=== PATIENT | female | born 1935 | race African-American/Black ===

== ENCOUNTER 2021-07-21 21:36 | Inpatient (IN) | payer MEDICARE, MEDICAID ==
[~2021-07-21] VITALS: Ht 152.4 cm; Wt 93.9 kg
[~2021-07-21 21:36] MED LIST: ALLO100T PO; AMLO10TA80 PO; ATOR20TA65 PO; CLON0.3T PO; DIGO125T PO; FAMO20TA8 PO; FURO80TA3 PO; IBUP-2030 PO; POTA10TA15 PO; PRED10DR OP; RIVA10TA PO
[2021-07-21] MEDS ORDERED: SODIUM CHLORIDE 0.9% 500 ML IV ONE (22:30)
[2021-07-21 22:31] LABS: HEMATOCRIT. 41.2 % (36.0-48.0); MEAN CORPUSCULAR VOLUME 79.3 fL (81.0-99.0); MEAN PLATELET VOLUME 9.9 fl (7.4-10.4); PLATELET 305 x1000/uL (130-400); RED BLOOD CELL COUNT 5.19 mill/uL (4.2-5.4); RED CELL DISTRIBUTION WIDTH 17.2 % (11.6-14.6)
[2021-07-21 22:44] LABS: CHLORIDE 94 mEq/L (98-107)
[2021-07-21 22:52] LABS: CREATINE KINASE 219 IU/L (26-192)
[2021-07-21] MEDS ORDERED: PIPERACILLIN/TAZ 3.375G PREMIX 50 ML IV NR (22:57)
[2021-07-21] MEDS ORDERED: PIPERACILLIN/TAZOBACTAM 3.375GM/50ML PREMIX IV ONE (23:00)
[2021-07-21 23:01] LABS: PLATELET ESTIMATE NORMAL
[2021-07-21 23:07] LABS: INR 1.4
[2021-07-22 01:00] LABS: T4 FREE 1.1 ng/dL (0.76-1.46)
[2021-07-22 02:29] LABS: DIGOXIN 5.4 ng/mL (0.9-2.0)
[2021-07-22] MEDS ORDERED: ONDANSETRON HCL 4MG/2ML INJ IV PRN (05:15)
[2021-07-22] MEDS ORDERED: DEXT 5%/0.45% NACL 1000ML 1,000 ML IV SCH (05:15)
[2021-07-22] MEDS ORDERED: ENOXAPARIN 40MG/0.4ML SYR SUBCUT SCH (05:15)
[2021-07-22] MEDS ORDERED: ACETAMINOPHEN 325MG TABLET PO PRN (05:15)
[2021-07-22 05:30] LABS: CLARITY URINE CLOUDY (CLEAR); COLOR URINE DARK YELLOW (YELLOW); KETONES URINE TRACE (NEGATIVE); LEUKOCYTE ESTERASE URINE 2+ (NEGATIVE); NITRITE URINE NEGATIVE (NEGATIVE); OCCULT BLOOD URINE 2+ (NEGATIVE); PROTEIN URINE 1+ (NEGATIVE); SPECIFIC GRAVITY URINE 1.014 (1.005-1.030); UROBILINOGEN URINE 0.2 E.U./dL (0.2-1.0)
[2021-07-22 08:00] VITALS: BP 137/54
[2021-07-22] MEDS: ENOXAPARIN 30MG/0.3ML SYR SUBCUT SCH (09:20)
[2021-07-22] MEDS ORDERED: CEFTRIAXONE 1 G PREMIX 50 ML IV SCH (10:45)
[2021-07-22] MEDS: CEFTRIAXONE 1,000 MG in DEXTROSE 5% WATER 50 ML IV SCH (11:52)
[2021-07-22 12:00] VITALS: BP 143/57
[2021-07-22 12:15] LABS: DIGOXIN 5.6 ng/mL (0.9-2.0)
[2021-07-22 12:50] VITALS: BP 143/57
[2021-07-22] MEDS: SODIUM CHLORIDE 0.45% 1,000 ML IV SCH ×2 (14:15→23:10)
[2021-07-22 15:59] LABS: CREATINE KINASE 207 IU/L (26-192)
[2021-07-22 16:00] VITALS: BP 137/50
[2021-07-22 20:00] VITALS: BP 131/56
[2021-07-23] VITALS: BP 126/63
[2021-07-23 04:00] VITALS: BP 138/50
[2021-07-23 08:00] VITALS: BP 141/45
[2021-07-23 08:23] LABS: HEMATOCRIT. 38.9 % (36.0-48.0); HEMOGLOBIN. 12.4 g/dL (12.0-16.0); MEAN CORPUSCULAR HEMOGLOBIN 25.2 pg (28.0-32.0); MEAN CORPUSCULAR VOLUME 79.4 fL (81.0-99.0); MEAN PLATELET VOLUME 9.6 fl (7.4-10.4); PLATELET 229 x1000/uL (130-400); RED CELL DISTRIBUTION WIDTH 17.4 % (11.6-14.6)
[2021-07-23] MEDS: ENOXAPARIN 30MG/0.3ML SYR SUBCUT SCH (08:36)
[2021-07-23] MEDS: CEFTRIAXONE 1,000 MG in DEXTROSE 5% WATER 50 ML IV SCH (11:49)
[2021-07-23 12:00] VITALS: BP 126/51
[2021-07-23] MEDS ORDERED: VANCOMYCIN 1250MG in DEXTROSE 5% WATER 250ML IV SCH (13:00)
[2021-07-23] MEDS ORDERED: NALOXONE HCL 0.4MG/ML VIAL IV PRN (14:30)
[2021-07-23] MEDS: HYDROMORPHONE HCL/PF 2MG/ML CPJ IV PRN ×2 (14:36→23:38)
[2021-07-23] MEDS: SODIUM CHLORIDE 0.45% 1,000 ML IV SCH (14:41)
[2021-07-23 16:00] VITALS: BP 127/51
[2021-07-23 20:00] VITALS: BP 125/57
[2021-07-23 22:20] LABS: PLATELET ESTIMATE NORMAL
[2021-07-24] VITALS: BP 119/59
[2021-07-24 04:00] VITALS: BP 130/54
[2021-07-24 07:35] LABS: HEMOGLOBIN. 11.8 g/dL (12.0-16.0); MEAN CORPUSCULAR HEMOGLOBIN 25.9 pg (28.0-32.0); MEAN CORPUSCULAR VOLUME 79.2 fL (81.0-99.0); PLATELET 212 x1000/uL (130-400); RED BLOOD CELL COUNT 4.54 mill/uL (4.2-5.4); RED CELL DISTRIBUTION WIDTH 17.9 % (11.6-14.6)
[2021-07-24 08:00] VITALS: BP 148/53
[2021-07-24 08:04] LABS: CHLORIDE 98 mEq/L (98-107)
[2021-07-24] MEDS: ENOXAPARIN 30MG/0.3ML SYR SUBCUT SCH (09:10)
[2021-07-24] MEDS: SODIUM CHLORIDE 0.9% 1,000 ML IV SCH (09:10)
[2021-07-24] MEDS: CEFTRIAXONE 1,000 MG in DEXTROSE 5% WATER 50 ML IV SCH (11:25)
[2021-07-24 12:00] VITALS: BP 142/58
[2021-07-24] MEDS ORDERED: VANCOMYCIN 750 MG PREMIX 150 ML IV NR (12:30)
[2021-07-24 13:11] LABS: PLATELET ESTIMATE NORMAL
[2021-07-24] MEDS: SODIUM CHLORIDE 0.45% 1,000 ML IV SCH (15:24)
[2021-07-24 16:00] VITALS: BP 129/44
[2021-07-24 20:00] VITALS: BP 160/72
[2021-07-25] VITALS: BP 144/55
[2021-07-25] MEDS: HYDROMORPHONE HCL/PF 2MG/ML CPJ IV PRN ×2 (00:49→20:50)
[2021-07-25 04:00] VITALS: BP 146/54
[2021-07-25] MEDS: SODIUM CHLORIDE 0.9% 1,000 ML IV SCH ×2 (04:19→22:14)
[2021-07-25 08:00] VITALS: BP 150/63
[2021-07-25] MEDS: ENOXAPARIN 30MG/0.3ML SYR SUBCUT SCH (09:00)
[2021-07-25] MEDS: CEFTRIAXONE 1,000 MG in DEXTROSE 5% WATER 50 ML IV SCH (10:04)
[2021-07-25 12:00] VITALS: BP 121/90
[2021-07-25 13:09] LABS: ANTI-NUCLEAR ANTIBODIES DIRECT Negative (Negative)
[2021-07-25 16:00] VITALS: BP 119/86
[2021-07-25] MEDS ORDERED: DIGOXIN IMMUNE FAB IV NR (18:45)
[2021-07-25] MEDS ORDERED: SODIUM CHLORIDE 0.9% IV NR (18:45)
[2021-07-25 20:00] VITALS: BP 139/70
[2021-07-26] VITALS: BP 113/65
[2021-07-26 04:00] VITALS: BP 130/52
[2021-07-26 06:35] LABS: HEMATOCRIT. 37.6 % (36.0-48.0); HEMOGLOBIN. 11.9 g/dL (12.0-16.0); MEAN CORPUSCULAR HEMOGLOBIN 25.4 pg (28.0-32.0); MEAN CORPUSCULAR VOLUME 80.1 fL (81.0-99.0); MEAN PLATELET VOLUME 9.7 fl (7.4-10.4); PLATELET 198 x1000/uL (130-400); RED BLOOD CELL COUNT 4.69 mill/uL (4.2-5.4); RED CELL DISTRIBUTION WIDTH 17.7 % (11.6-14.6)
[2021-07-26 08:00] VITALS: BP 131/60
[2021-07-26] MEDS: SODIUM CHLORIDE 0.9% 1,000 ML IV SCH ×2 (09:24→21:45)
[2021-07-26] MEDS ORDERED: POTASSIUM CHLORIDE 20MEQ TABLET SR PO SCH (09:30)
[2021-07-26] MEDS: CEFTRIAXONE 1,000 MG in DEXTROSE 5% WATER 50 ML IV SCH (10:30)
[2021-07-26] MEDS: ENOXAPARIN 30MG/0.3ML SYR SUBCUT SCH (10:30)
[2021-07-26 12:00] VITALS: BP 104/50
[2021-07-26 16:00] VITALS: BP 138/72
[2021-07-26 19:15] LABS: PLATELET ESTIMATE NORMAL
[2021-07-26 20:00] VITALS: BP 156/60
[2021-07-26] MEDS ORDERED: VANCOMYCIN 500 MG PREMIX 100 ML IV NR (22:00)
[2021-07-27] VITALS (7 sets, daily range): BP systolic 126–164; BP diastolic 22–66
[2021-07-27] MEDS: HYDROMORPHONE HCL/PF 2MG/ML CPJ IV PRN ×2 (00:59→21:27)
[2021-07-27] MEDS: ENOXAPARIN 30MG/0.3ML SYR SUBCUT SCH (08:47)
[2021-07-27 08:52] LABS: HEMATOCRIT. 36.1 % (36.0-48.0); HEMOGLOBIN. 11.5 g/dL (12.0-16.0); MEAN CORPUSCULAR HEMOGLOBIN 25.2 pg (28.0-32.0); MEAN CORPUSCULAR VOLUME 79.2 fL (81.0-99.0); PLATELET 184 x1000/uL (130-400); RED BLOOD CELL COUNT 4.56 mill/uL (4.2-5.4); RED CELL DISTRIBUTION WIDTH 17.9 % (11.6-14.6)
[2021-07-27 09:19] LABS: DIGOXIN 2.9 ng/mL (0.9-2.0)
[2021-07-27] MEDS: SODIUM CHLORIDE 0.9% 1,000 ML IV SCH ×2 (10:04→23:29)
[2021-07-27] MEDS: CEFTRIAXONE 1,000 MG in DEXTROSE 5% WATER 50 ML IV SCH (11:26)
[2021-07-27] MEDS ORDERED: LEVOTHYROXINE SODIUM 50MCG TABLET PO NR (13:15)
[2021-07-27 15:02] LABS: PLATELET ESTIMATE NORMAL
[2021-07-28 04:55] VITALS: BP 154/68
[2021-07-28] MEDS: LEVOTHYROXINE SODIUM 50MCG TABLET PO SCH (06:00)
[2021-07-28 06:40] LABS: HEMATOCRIT. 34.2 % (36.0-48.0); MEAN CORPUSCULAR HEMOGLOBIN 25.7 pg (28.0-32.0); MEAN CORPUSCULAR VOLUME 79.9 fL (81.0-99.0); MEAN PLATELET VOLUME 10.4 fl (7.4-10.4); PLATELET 176 x1000/uL (130-400); RED BLOOD CELL COUNT 4.28 mill/uL (4.2-5.4); RED CELL DISTRIBUTION WIDTH 18.1 % (11.6-14.6)
[2021-07-28 08:00] VITALS: BP 164/67
[2021-07-28] MEDS: ENOXAPARIN 30MG/0.3ML SYR SUBCUT SCH (09:39)
[2021-07-28] MEDS: SODIUM CHLORIDE 0.9% 1,000 ML IV SCH ×2 (09:39→23:14)
[2021-07-28] MEDS ORDERED: POTASSIUM CHLORIDE 20MEQ TABLET SR PO NR (10:15)
[2021-07-28] MEDS ORDERED: ATROPINE SULFATE 1MG/ML VIAL IV PRN (10:15)
[2021-07-28 12:00] VITALS: BP 169/85
[2021-07-28 16:00] VITALS: BP 166/72
[2021-07-28 16:29] VITALS: BP 116/56
[2021-07-28 18:00] LABS: PLATELET ESTIMATE NORMAL
[2021-07-28 20:00] VITALS: BP 168/72
[2021-07-28] MEDS ORDERED: HYDRALAZINE 20MG/ML VIAL IV NR (21:15)
[2021-07-28] MEDS: ZOLPIDEM TARTRATE 5MG TABLET PO PRN (21:33)
[2021-07-29] VITALS (11 sets, daily range): BP systolic 137–168; BP diastolic 58–88
[2021-07-29] MEDS: LEVOTHYROXINE SODIUM 50MCG TABLET PO SCH (06:40)
[2021-07-29] MEDS ORDERED: IODIXANOL 320MG/ML 100 ML BOTTLE IV ONE (07:36)
[2021-07-29] MEDS ORDERED: CEFAZOLIN 1000MG PREMIX 100 ML IV ONE (07:36)
[2021-07-29] MEDS ORDERED: LIDOCAINE HCL 1% 10 MG/ML 10ML VIAL ONE ×2 (08:26→09:01)
[2021-07-29] MEDS ORDERED: GENTAMICIN SULF 40MG/ML 2ML VIAL ONE (08:26)
[2021-07-29] MEDS ORDERED: GENTAMICIN/NS IRRIGATION 500 ML IR ONE (08:28)
[2021-07-29] MEDS ORDERED: MIDAZOLAM HCL 2 MG/2 ML VIAL ONE (08:43)
[2021-07-29] MEDS ORDERED: FENTANYL CITRATE/PF 50MCG/ML 2ML VIAL ONE (09:00)
[2021-07-29] MEDS ORDERED: HYDROCODONE/ACETAMINOPHEN 5/325MG TABLET PO PRN (09:45)
[2021-07-29] MEDS ORDERED: NALOXONE HCL 0.4MG/ML VIAL IV PRN (09:45)
[2021-07-29] MEDS: SODIUM CHLORIDE 0.9% 1,000 ML IV SCH (12:43)
[2021-07-29 15:45] LABS: HEMATOCRIT. 34.7 % (36.0-48.0); MEAN CORPUSCULAR HEMOGLOBIN 25.6 pg (28.0-32.0); MEAN CORPUSCULAR VOLUME 80.3 fL (81.0-99.0); MEAN PLATELET VOLUME 9.9 fl (7.4-10.4); PLATELET 147 x1000/uL (130-400); RED BLOOD CELL COUNT 4.32 mill/uL (4.2-5.4); RED CELL DISTRIBUTION WIDTH 18.6 % (11.6-14.6)
[2021-07-29 15:55] LABS: CHLORIDE 118 mEq/L (98-107)
[2021-07-29 16:04] LABS: PHOSPHORUS 2.3 mg/dL (2.5-4.9)
[2021-07-29 16:19] LABS: DIGOXIN 1.5 ng/mL (0.9-2.0)
[2021-07-29] MEDS: SODIUM CHLORIDE 0.45% 1,000 ML IV SCH (20:18)
[2021-07-29] MEDS ORDERED: KCL 10MEQ/50ML PREMIX 50 ML IV SCH (21:00)
[2021-07-29 22:32] LABS: PLATELET ESTIMATE NORMAL
[2021-07-30] VITALS (11 sets, daily range): BP systolic 122–163; BP diastolic 62–76
[2021-07-30] MEDS: LEVOTHYROXINE SODIUM 50MCG TABLET PO SCH (06:57)
[2021-07-30 07:00] LABS: HEMATOCRIT. 33.2 % (36.0-48.0); HEMOGLOBIN. 10.6 g/dL (12.0-16.0); MEAN CORPUSCULAR HEMOGLOBIN 25.5 pg (28.0-32.0); MEAN CORPUSCULAR VOLUME 79.7 fL (81.0-99.0); MEAN PLATELET VOLUME 10.3 fl (7.4-10.4); PLATELET 150 x1000/uL (130-400); RED BLOOD CELL COUNT 4.17 mill/uL (4.2-5.4)
[2021-07-30] MEDS: SODIUM CHLORIDE 0.45% 1,000 ML IV SCH (08:49)
[2021-07-30] MEDS: DEXTROSE 5% WATER 1,000 ML IV SCH (10:29)
[2021-07-30 11:21] LABS: PLATELET ESTIMATE NORMAL
[2021-07-30] MEDS: ZOLPIDEM TARTRATE 5MG TABLET PO PRN (20:41)
[2021-07-31] VITALS (12 sets, daily range): BP systolic 128–152; BP diastolic 52–76
[2021-07-31] MEDS: DEXTROSE 5% WATER 1,000 ML IV SCH ×2 (02:28→19:55)
[2021-07-31] MEDS: LEVOTHYROXINE SODIUM 50MCG TABLET PO SCH (06:46)
[2021-07-31 09:52] LABS: HEMATOCRIT. 34.6 % (36.0-48.0); HEMOGLOBIN. 11.1 g/dL (12.0-16.0); MEAN CORPUSCULAR HEMOGLOBIN 25.5 pg (28.0-32.0); MEAN CORPUSCULAR VOLUME 79.3 fL (81.0-99.0); PLATELET 124 x1000/uL (130-400); RED BLOOD CELL COUNT 4.37 mill/uL (4.2-5.4); RED CELL DISTRIBUTION WIDTH 18.6 % (11.6-14.6)
[2021-07-31 10:58] LABS: PLATELET ESTIMATE SLIGHTLY DECREASED
[2021-07-31] MEDS: LACTULOSE 20G/30ML UDC PO SCH ×2 (13:42→19:55)
[2021-07-31] MEDS: ZOLPIDEM TARTRATE 5MG TABLET PO PRN (20:22)
[2021-08-01] VITALS (12 sets, daily range): BP systolic 116–147; BP diastolic 65–93
[2021-08-01] MEDS: LACTULOSE 20G/30ML UDC PO SCH ×2 (03:31→14:00)
[2021-08-01 05:59] LABS: BASOPHILS % 0.4 % (0.0-2.0); EOSINOPHILS % 1.5 % (0.0-5.0); HEMATOCRIT. 34.8 % (36.0-48.0); HEMOGLOBIN. 11.2 g/dL (12.0-16.0); LYMPHOCYTES % 9.5 % (20.0-50.0); MEAN CORPUSCULAR HEMOGLOBIN 25.6 pg (28.0-32.0); MEAN PLATELET VOLUME 10.1 fl (7.4-10.4); MONOCYTES % 6.2 % (2.0-8.0); NEUTROPHILS % 82.4 % (40.0-76.0); PLATELET 112 x1000/uL (130-400); RED BLOOD CELL COUNT 4.35 mill/uL (4.2-5.4); RED CELL DISTRIBUTION WIDTH 19.2 % (11.6-14.6)
[2021-08-01] MEDS: LEVOTHYROXINE SODIUM 50MCG TABLET PO SCH (06:12)
[2021-08-01 06:19] LABS: PHOSPHORUS 1.8 mg/dL (2.5-4.9)
[2021-08-01] MEDS ORDERED: POTASSIUM PHOS,M-BASIC-D-BASIC 20 MMOL in DEXT 5% WATER 243.3333 ML IV SCH (10:00)
[2021-08-01] MEDS ORDERED: METOPROLOL TARTRATE 25MG TABLET PO SCH (14:15)
[2021-08-01] MEDS ORDERED: RIVAROXABAN 15 MG TABLET PO SCH (17:20)
== END 2021-08-01 22:54 | disposition home or self-care (01) | DRG 853 ==
LOC: ER 21:36 → MICUSO 07-22 02:31 → EDBEDREQTM 07-22 02:34 → EDBEDREQDT 07-22 02:34 → EDBEDREQ 07-22 02:34 → 7EST 07-22 12:59 → 3WST 07-29 10:03
PROVIDERS: ADMIT Hospitalist; ATTEND Hospitalist
PROC: 0JH604Z Insertion of Pacemaker, Single Chamber into Chest Subcutaneous Tissue and Fascia, Open Approach (ICD-10-PCS; principal; 2021-07-29)
PROC: 02HK3JZ Insertion of Pacemaker Lead into Right Ventricle, Percutaneous Approach (ICD-10-PCS; 2021-07-29)
PROC: B517YZZ Fluoroscopy of Left Subclavian Vein using Other Contrast (ICD-10-PCS; 2021-07-29)
DX: A40.9 Streptococcal sepsis, unspecified (principal); N17.0 Acute kidney failure with tubular necrosis; G92.8 Other toxic encephalopathy; I13.0 Hypertensive heart and chronic kidney disease with heart failure and stage 1 through stage 4 chronic kidney disease, or unspecified chronic kidney disease; C78.7 Secondary malignant neoplasm of liver and intrahepatic bile duct; E87.1 Hypo-osmolality and hyponatremia; E87.2 Acidosis; E44.1 Mild protein-calorie malnutrition; N39.0 Urinary tract infection, site not specified; Z68.41 Body mass index [BMI] 40.0-44.9, adult; I47.1 Supraventricular tachycardia; I49.5 Sick sinus syndrome; T46.0X5A Adverse effect of cardiac-stimulant glycosides and drugs of similar action, initial encounter; N18.9 Chronic kidney disease, unspecified; C50.912 Malignant neoplasm of unspecified site of left female breast; E86.9 Volume depletion, unspecified; Z86.73 Personal history of transient ischemic attack (TIA), and cerebral infarction without residual deficits; I50.9 Heart failure, unspecified; E03.9 Hypothyroidism, unspecified; E86.0 Dehydration; R53.81 Other malaise; R74.01 Elevation of levels of liver transaminase levels; I48.0 Paroxysmal atrial fibrillation; I89.0 Lymphedema, not elsewhere classified; I49.3 Ventricular premature depolarization; M19.90 Unspecified osteoarthritis, unspecified site; D69.6 Thrombocytopenia, unspecified; Z20.822 Contact with and (suspected) exposure to COVID-19; E78.5 Hyperlipidemia, unspecified; E87.6 Hypokalemia; I08.3 Combined rheumatic disorders of mitral, aortic and tricuspid valves; I27.20 Pulmonary hypertension, unspecified; Y92.89 Other specified places as the place of occurrence of the external cause; Z79.899 Other long term (current) drug therapy; Z79.01 Long term (current) use of anticoagulants
CPT/HCPCS: 33207; 36415; 71045; 74176; 75820; 76770; 80048; 80053; 80162; 80202; 81003; 82436; 82550; 82570; 83605; 83735; 83880; 84100; 84133; 84145; 84300; 84439; 84443; 84484; 85025; 86038; 86160; 87426; 93005; 93306; 93970; 97110; 97162; 97164; 97530; 99291; A6261; C1786; C1893; C1898; J0360; J0690; J0696; J1162; J1170; J1580; J1650; J2250; J2405; J2543; J3010; J3370; J3480; J3490; J7030; J7060; J7070; Q9967

== ENCOUNTER 2021-10-17 14:51 | Inpatient (IN) | payer MEDICARE, MEDICAID ==
[~2021-10-17] VITALS: Ht 152.4 cm; Wt 93.9 kg
[2021-10-17] MEDS ORDERED: ASPIRIN 81MG TABLET PO ONE (15:15)
[2021-10-17 15:42] LABS: HEMATOCRIT. 24.6 % (36.0-48.0); HEMOGLOBIN. 7.6 g/dL (12.0-16.0); MEAN CORPUSCULAR VOLUME 81.1 fL (81.0-99.0); MEAN PLATELET VOLUME 8.2 fl (7.4-10.4); PLATELET 262 x1000/uL (130-400); RED BLOOD CELL COUNT 3.04 mill/uL (4.2-5.4); RED CELL DISTRIBUTION WIDTH 20.3 % (11.6-14.6)
[2021-10-17 15:48] LABS: CHLORIDE 106 mEq/L (98-107)
[2021-10-17 16:14] LABS: PLATELET ESTIMATE NORMAL
[2021-10-17 16:15] LABS: DIGOXIN 0.1 ng/mL (0.9-2.0)
[2021-10-17] MEDS ORDERED: AZITHROMYCIN 500MG/250ML 250 ML IV ONE (20:15)
[2021-10-17] MEDS ORDERED: CEFTRIAXONE 1 G PREMIX 50 ML IV ONE (20:15)
[2021-10-17] MEDS ORDERED: ACETAMINOPHEN 325MG TABLET PO PRN (20:30)
[2021-10-17] MEDS ORDERED: CLONIDINE 0.1MG TABLET PO PRN (20:30)
[2021-10-17] MEDS ORDERED: MAGNESIUM/ALUMINUM HYDROXIDE/SIMETHICONE 30ML UDC PO PRN (20:30)
[2021-10-17] MEDS ORDERED: GUAIFENESIN 200MG/10ML SUGAR FREE UDC PO PRN (20:30)
[2021-10-17] MEDS ORDERED: DOCUSATE SODIUM 100MG CAPSULE PO PRN (20:30)
[2021-10-17] MEDS ORDERED: ENOXAPARIN 40MG/0.4ML SYR SUBCUT SCH (20:30)
[2021-10-17] MEDS ORDERED: ONDANSETRON HCL 4MG/2ML INJ IV PRN (20:30)
[2021-10-17] MEDS: HYDROCODONE/ACETAMINOPHEN 5/325MG TABLET PO PRN (23:28)
[2021-10-17 23:29] LABS: CLARITY URINE TURBID (CLEAR); COLOR URINE DARK YELLOW (YELLOW); KETONES URINE TRACE (NEGATIVE); LEUKOCYTE ESTERASE URINE 3+ (NEGATIVE); NITRITE URINE NEGATIVE (NEGATIVE); OCCULT BLOOD URINE 2+ (NEGATIVE); PROTEIN URINE 1+ (NEGATIVE); SPECIFIC GRAVITY URINE 1.015 (1.005-1.030)
[2021-10-18] VITALS (8 sets, daily range): BP systolic 108–151; BP diastolic 48–118
[2021-10-18] MEDS: HYDROMORPHONE HCL/PF 2MG/ML CPJ IV PRN (05:17)
[2021-10-18 06:45] LABS: CHLORIDE 106 mEq/L (98-107)
[2021-10-18 06:53] LABS: HDL CHOLESTEROL 30 mg/dL (40-59); LDL CHOLESTEROL 36 mg/dL (5-100)
[2021-10-18 07:11] LABS: HEMATOCRIT. 22.1 % (36.0-48.0); MEAN CORPUSCULAR HEMOGLOBIN 25.5 pg (28.0-32.0); MEAN CORPUSCULAR VOLUME 82.2 fL (81.0-99.0); MEAN PLATELET VOLUME 8.7 fl (7.4-10.4); PLATELET 229 x1000/uL (130-400); RED BLOOD CELL COUNT 2.69 mill/uL (4.2-5.4); RED CELL DISTRIBUTION WIDTH 20.2 % (11.6-14.6)
[2021-10-18 07:52] LABS: HEMOGLOBIN. 6.9 g/dL (12.0-16.0)
[2021-10-18] MEDS ORDERED: NALOXONE HCL 0.4MG/ML VIAL IV PRN (12:15)
[2021-10-18] MEDS ORDERED: CEFTRIAXONE 1 G PREMIX 50 ML IV SCH (12:45)
[2021-10-18] MEDS: FLUCONAZOLE 100MG TABLET PO SCH (13:27)
[2021-10-18] MEDS: DEXT 5%/0.9% NACL 1,000 ML IV SCH (13:27)
[2021-10-18] MEDS: CEFTRIAXONE 1,000 MG in DEXTROSE 5% WATER 50 ML IV SCH (15:13)
[2021-10-18 16:46] LABS: PLATELET ESTIMATE NORMAL
[2021-10-19] VITALS (8 sets, daily range): BP systolic 125–150; BP diastolic 48–62
[2021-10-19 08:34] LABS: HEMATOCRIT. 25.9 % (36.0-48.0); HEMOGLOBIN. 8.5 g/dL (12.0-16.0); MEAN CORPUSCULAR HEMOGLOBIN 26.7 pg (28.0-32.0); MEAN CORPUSCULAR VOLUME 81.4 fL (81.0-99.0); MEAN PLATELET VOLUME 8.1 fl (7.4-10.4); PLATELET 163 x1000/uL (130-400); RED BLOOD CELL COUNT 3.18 mill/uL (4.2-5.4); RED CELL DISTRIBUTION WIDTH 19.1 % (11.6-14.6)
[2021-10-19] MEDS: FLUCONAZOLE 100MG TABLET PO SCH (08:51)
[2021-10-19 09:30] LABS: CHLORIDE 107 mEq/L (98-107)
[2021-10-19] MEDS: HYDROCODONE/ACETAMINOPHEN 5/325MG TABLET PO PRN (10:22)
[2021-10-19] MEDS ORDERED: SODIUM BICARBONATE 8.4% 1 MEQ/ML 50ML SYR IV NR (12:00)
[2021-10-19] MEDS: CEFTRIAXONE 1,000 MG in DEXTROSE 5% WATER 50 ML IV SCH (14:22)
[2021-10-19] MEDS: DEXT 5%/0.9% NACL 1,000 ML IV SCH (14:23)
[2021-10-19] MEDS: HYDROMORPHONE HCL/PF 2MG/ML CPJ IV PRN (16:38)
[2021-10-19 17:42] LABS: NUCLEATED RED BLOOD CELLS 1 /100 WBC
[2021-10-19 17:43] LABS: PLATELET ESTIMATE NORMAL
[2021-10-20] VITALS: BP 122/70
[2021-10-20] MEDS: DEXT 5%/0.9% NACL 1,000 ML IV SCH ×3 (00:56→20:44)
[2021-10-20 04:00] VITALS: BP 120/59
[2021-10-20 07:46] LABS: HEMATOCRIT. 26.6 % (36.0-48.0); HEMOGLOBIN. 8.6 g/dL (12.0-16.0); MEAN CORPUSCULAR HEMOGLOBIN 26.5 pg (28.0-32.0); MEAN CORPUSCULAR VOLUME 82.3 fL (81.0-99.0); MEAN PLATELET VOLUME 8.8 fl (7.4-10.4); PLATELET 121 x1000/uL (130-400); RED BLOOD CELL COUNT 3.23 mill/uL (4.2-5.4); RED CELL DISTRIBUTION WIDTH 19.7 % (11.6-14.6)
[2021-10-20 08:00] VITALS: BP 111/50
[2021-10-20] MEDS: FLUCONAZOLE 100MG TABLET PO SCH (09:27)
[2021-10-20 10:26] LABS: CREATINE KINASE 909 IU/L (26-192)
[2021-10-20] MEDS ORDERED: FLUCONAZOLE 100 MG/50ML BAG 50 ML IV SCH (11:00)
[2021-10-20 11:18] LABS: PLATELET ESTIMATE SLIGHTLY DECREASED
[2021-10-20 12:00] VITALS: BP 102/48
[2021-10-20] MEDS: CEFTRIAXONE 1,000 MG in DEXTROSE 5% WATER 50 ML IV SCH (14:51)
[2021-10-20] MEDS ORDERED: FLUCONAZOLE 100MG/50ML in BAG IV SCH (15:30)
[2021-10-20 16:00] VITALS: BP 102/51
[2021-10-20 20:00] VITALS: BP 110/52
[2021-10-20 21:06] LABS: INR 1.4; PROTHROMBIN TIME 14.5 sec (9.6-11.0)
[2021-10-21] VITALS (26 sets, daily range): BP systolic 48–118; BP diastolic 28–85
[2021-10-21] MEDS: DEXT 5%/0.9% NACL 1,000 ML IV SCH (05:51)
[2021-10-21] MEDS ORDERED: LACTULOSE 20G/30ML UDC NG SCH (07:00)
[2021-10-21] MEDS ORDERED: LIDOCAINE HCL 1% 20ML VIAL (Pyxis) INJ ONE (11:05)
[2021-10-21] MEDS: CEFTRIAXONE 1,000 MG in DEXTROSE 5% WATER 50 ML IV SCH (11:46)
[2021-10-21 12:07] LABS: BG BASE EXCESS -15.5 mmol/L (-2.0-2.0); BG DEOXYHEMOGLOBIN 8.4 % (0.0-5.0); BG HCO3 ACT 13.1 mmol/L (22.0-26.0); BG METHEMOGLOBIN 0.3 % (0.0-1.5); BG OXYGEN SATURATION 91.5 % (92.0-98.5); BG OXYHEMOGLOBIN 90.3 % (94.0-97.0); BG PCO2 44.2 mmHg (35.0-45.0); BG PH 7.089 (7.350-7.450); BG PO2 74.9 mmHg (75.0-100.0); BG SAMPLE SITE RIGHT BRACHIAL; BG TOTAL HEMOGLOBIN 6.8 g/dL (12.0-18.0)
[2021-10-21 12:18] LABS: MEAN CORPUSCULAR HEMOGLOBIN 26.1 pg (28.0-32.0); MEAN CORPUSCULAR VOLUME 83.7 fL (81.0-99.0); MEAN PLATELET VOLUME 8.9 fl (7.4-10.4); PLATELET 87 x1000/uL (130-400); RED BLOOD CELL COUNT 2.45 mill/uL (4.2-5.4); RED CELL DISTRIBUTION WIDTH 19.6 % (11.6-14.6)
[2021-10-21 12:36] LABS: HEMATOCRIT. 20.5 % (36.0-48.0); HEMOGLOBIN. 6.4 g/dL (12.0-16.0)
[2021-10-21] MEDS ORDERED: NOREPINEPHRINE 8 MG in DEXT 5% WATER 242 ML IV SCH (12:45)
[2021-10-21] MEDS ORDERED: SODIUM BICARBONATE 8.4% 1 MEQ/ML 50ML SYR IV SCH (13:45)
[2021-10-21] MEDS ORDERED: SODIUM BICARBONATE 8.4% 1 MEQ/ML 50ML SYR IV NR (14:00)
[2021-10-21] MEDS ORDERED: SODIUM BICARBONATE 150 MEQ in DEXTROSE 5% WATER 1,000 ML IV SCH (16:00)
[2021-10-21] MEDS ORDERED: MORPHINE SULFATE 250 MG in DEXT 5% WATER 240 ML IV PRN (16:30)
[2021-10-21] MEDS ORDERED: MORPHINE SULFATE 250 MG in DEXT 5% WATER 225 ML IV PRN (16:30)
[2021-10-21 16:33] LABS: NUCLEATED RED BLOOD CELLS 5 /100 WBC; PLATELET ESTIMATE DECREASED
== END 2021-10-21 19:18 | DRG 871 ==
LOC: ER 14:51 → EDBEDREQ 20:13 → EDBEDREQTM 20:13 → MICUSO 22:30 → 8WST 10-18 12:05 → 3WST 10-21 10:13 → MICUNO 10-21 14:24
PROVIDERS: ADMIT Hospitalist; ATTEND Hospitalist
PROC: 30233N1 Transfusion of Nonautologous Red Blood Cells into Peripheral Vein, Percutaneous Approach (ICD-10-PCS; 2021-10-18)
PROC: 02HV33Z Insertion of Infusion Device into Superior Vena Cava, Percutaneous Approach (ICD-10-PCS; principal; 2021-10-20)
PROC: B548ZZA Ultrasonography of Superior Vena Cava, Guidance (ICD-10-PCS; 2021-10-20)
PROC: 02HV33Z Insertion of Infusion Device into Superior Vena Cava, Percutaneous Approach (ICD-10-PCS; 2021-10-21)
PROC: B548ZZA Ultrasonography of Superior Vena Cava, Guidance (ICD-10-PCS; 2021-10-21)
DX: A41.9 Sepsis, unspecified organism (principal); K85.90 Acute pancreatitis without necrosis or infection, unspecified; E43 Unspecified severe protein-calorie malnutrition; J18.9 Pneumonia, unspecified organism; G93.41 Metabolic encephalopathy; K72.00 Acute and subacute hepatic failure without coma; J96.00 Acute respiratory failure, unspecified whether with hypoxia or hypercapnia; K57.91 Diverticulosis of intestine, part unspecified, without perforation or abscess with bleeding; C78.7 Secondary malignant neoplasm of liver and intrahepatic bile duct; I13.0 Hypertensive heart and chronic kidney disease with heart failure and stage 1 through stage 4 chronic kidney disease, or unspecified chronic kidney disease; E87.2 Acidosis; R18.8 Other ascites; B37.49 Other urogenital candidiasis; D68.9 Coagulation defect, unspecified; Z68.41 Body mass index [BMI] 40.0-44.9, adult; N17.9 Acute kidney failure, unspecified; Z66 Do not resuscitate; C50.912 Malignant neoplasm of unspecified site of left female breast; R74.01 Elevation of levels of liver transaminase levels; I50.9 Heart failure, unspecified; N18.30 Chronic kidney disease, stage 3 unspecified; D63.1 Anemia in chronic kidney disease; R57.8 Other shock; I48.91 Unspecified atrial fibrillation; K80.20 Calculus of gallbladder without cholecystitis without obstruction; D69.6 Thrombocytopenia, unspecified; I89.0 Lymphedema, not elsewhere classified; I49.5 Sick sinus syndrome; R16.0 Hepatomegaly, not elsewhere classified; Z20.822 Contact with and (suspected) exposure to COVID-19; K43.9 Ventral hernia without obstruction or gangrene; K57.90 Diverticulosis of intestine, part unspecified, without perforation or abscess without bleeding; N26.1 Atrophy of kidney (terminal); Z74.01 Bed confinement status; Z86.73 Personal history of transient ischemic attack (TIA), and cerebral infarction without residual deficits; Z95.0 Presence of cardiac pacemaker; Z79.899 Other long term (current) drug therapy; Z79.01 Long term (current) use of anticoagulants
CPT/HCPCS: 36415; 36556; 36600; 71045; 74176; 76700; 76937; 80048; 80053; 80061; 80076; 80162; 81003; 82140; 82150; 82270; 82375; 82550; 82570; 82805; 83735; 83880; 84300; 84484; 85025; 86850; 86900; 86920; 87106; 87426; 93005; 93970; 93971; 99285; C1725; C1752; J0456; J0696; J1170; J1450; J1642; J2405; J3490; J7042; J7060; J7070; P9016; A4315